=== PATIENT | female | born 1995 | race Two or more races ===

== ENCOUNTER 2025-01-24 10:28 | Emergency (ER) | payer MEDICAID ==
[~2025-01-24] VITALS: Ht 170.2 cm; Wt 65.2 kg
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
--- NOTE | 2025-01-24 11:24 | DVH ---
INDICATION: Trauma COMPARISON: None TECHNIQUE: 5 views of the cervical spine were obtained. FINDINGS: The cervical vertebral alignment is normal. The predental space is normal. The intervertebral disc spaces are well-maintained. No significant facet arthropathy is noted. No acute fracture, vertebral compression deformity or aggressive osseous lesions. The imaged lung apices are unremarkable. IMPRESSION: No acute fracture.
[2025-01-24] MEDS: traMADol HCL 50 MG TAB PO ONE (12:10)
[2025-01-24 12:13] VITALS: BP 110/70; PULSE 107; RESP 16; TEMP 99.3; O2SAT 98
== END 2025-01-24 12:23 | disposition home or self-care (01) ==
LOC: ER 10:28
DX: S16.1XXA Strain of muscle, fascia and tendon at neck level, initial encounter (principal); V43.52XA Car driver injured in collision with other type car in traffic accident, initial encounter; Y93.89 Activity, other specified; Y92.410 Unspecified street and highway as the place of occurrence of the external cause; Y99.8 Other external cause status
CPT/HCPCS: 72040